=== PATIENT | female | born 1930 | race Caucasian/White ===

== ENCOUNTER → 2017-09-25 | Outpatient (CLI) | payer MEDICARE ==
--- NOTE | 2017-09-25 15:48 | US ---
EXAMINATION TYPE: US venous doppler duplex LE RT DATE OF EXAM: 09/25/2017 3:35 PM COMPARISON: NONE CLINICAL HISTORY: 86-year-old female with right Lower Ext, Pain and Swelling. Patient fell last week, right leg swelling and pain SIDE PERFORMED: Right TECHNIQUE: The lower extremity deep venous system is examined utilizing real time linear array sonog delmi with graded compression, doppler sonography and color-flow sonography. FINDINGS: VESSELS IMAGED: External Iliac Vein (EIV) Common Femoral Vein Deep Femoral Vein Greater Saphenous Vein * Femoral Vein Popliteal Vein Small Saphenous Vein * Proximal Calf Veins (* superficial vessels) Right Leg: Negative for DVT Within the right groin, there is a mildly enlarged lymph node visualized measuring 3.1 x 1.0 x 2.1 cm IMPRESSION: No evidence for DVT within the right lower extremity imaged from the groin to the upper calf. Mildly enlarged right inguinal lymph node measuring 2.1 cm short axis. Findings may be reactive/post inflammatory. This can be followed clinically to ensure stability or resolution.
== END | disposition home or self-care (01) ==
LOC: RADUSWWP 15:07
PROVIDERS: ATTEND Orthopaedic Surgery
DX: R59.0 Localized enlarged lymph nodes (principal); M25.561 Pain in right knee

== ENCOUNTER → 2017-10-17 | Outpatient (CLI) | payer MEDICARE ==
[2017-10-18 01:36] LABS: Cardiolipin IgA Antibody 4.8 U/mL
[2017-10-18 01:37] LABS: Cardiolipin Ab IgG Interp NEGATIVE (NEGATIVE); Cardiolipin Ab IgM Interp NEGATIVE (NEGATIVE); Cardiolipin IgM Antibody 0.4 U/mL
[2017-10-18 01:38] LABS: Protein, Total 6.9 g/dL (6.2-8.2)
[2017-10-18 11:40] LABS: APTT 43 Sec(s) (<43); Dilute Russell Viper Venom 38 Sec(s) (<44)
[2017-10-18 14:43] LABS: Hemoglobin A1C 4.2 % (4.0-6.0)
[2017-10-19 13:28] LABS: Albumin 4.37 g/dL (3.80-4.90); Gamma Globulin 0.87 g/dL (0.70-1.50)
== END | disposition home or self-care (01) ==
LOC: LABWHC1 16:24
PROVIDERS: ATTEND Psychiatry & Neurology Neurology
DX: G60.2 Neuropathy in association with hereditary ataxia (principal); R58 Hemorrhage, not elsewhere classified; D68.9 Coagulation defect, unspecified; G45.9 Transient cerebral ischemic attack, unspecified; Z79.899 Other long term (current) drug therapy
CPT/HCPCS: 36415; 82550; 82607; 82747; 83036; 83090; 84165; 85613; 85652; 85730; 86038; 86147

== ENCOUNTER → 2018-08-13 | Outpatient (CLI) | payer MEDICARE ==
[2018-08-13 10:56] LABS: Basophils % (A) 0 %; Eosinophils # (A) 0.2 k/uL (0-0.7); Eosinophils % (A) 3 %; HCT 38.5 % (34.0-46.0); HGB 12.7 gm/dL (11.4-16.0); Lymphocytes # (A) 1.8 k/uL (1.0-4.8); Lymphocytes % (A) 26 %; MCH 30.3 pg (25.0-35.0); MCHC 33.1 g/dL (31.0-37.0); MCV 91.6 fL (80.0-100.0); Mean Platelet Volume 6.7; Monocytes # (A) 0.3 k/uL (0-1.0); Monocytes % (A) 5 %; Neutrophils # (A) 4.5 k/uL (1.3-7.7); Neutrophils % (A) 65 %; Platelet Count 196 k/uL (150-450); RDW 15.2 % (11.5-15.5)
[2018-08-13 16:35] LABS: Albumin 4.1 g/dL (3.80-4.90); Albumin/Globulin Ratio 1.95 (1.20-2.10); Anion Gap 4.2 mmol/L (4.00-12.00); Calcium 9.2 mg/dL (8.7-10.3); Carbon Dioxide 29.8 mmol/L (21.6-31.8); Globulin 2.1 g/dL (2.1-3.7); Potassium 4.4 mmol/L (3.5-5.5); Total Bilirubin 0.6 mg/dL (0.2-1.2); Total Protein 6.2 g/dL (6.2-8.2)
== END | disposition home or self-care (01) ==
LOC: LABWHC1 09:38
PROVIDERS: ATTEND Nurse Practitioner
DX: E78.5 Hyperlipidemia, unspecified (principal); D64.9 Anemia, unspecified
CPT/HCPCS: 36415; 80053; 80061; 85025